=== PATIENT | male | born 1945 ===

== ENCOUNTER 2021-11-19 21:18 | Emergency (ER) | payer OTHER ==
[~2021-11-19] VITALS: Ht 170.2 cm; Wt 52.2 kg
[~2021-11-19 21:18] MED LIST: FLUT50AE2; TIOTCAP
[2021-11-19] MEDS ORDERED: ALBUTEROL SULF 2.5 MG/0.5ML(0.5%) NEB SOLN NEB ONE (21:30)
[2021-11-19 22:18] LABS: Basophils # (auto) 0.1 10 ^3/uL (0-0.2); Basophils % (auto) 0.5 % (0.0-2.0); Eosinophils # (auto) 0.4 10 ^3/uL (0-0.8); Eosinophils % (auto) 2.7 % (0.0-7.0); Hematocrit 39.4 % (41.0-53.0); Hemoglobin 13.5 g/dL (13.5-17.5); Lymphocytes # (auto) 1.3 10 ^3/uL (0.4-5.4); Lymphocytes % (auto) 9.4 % (10.0-50.0); Mean Corpuscular Hemoglobin 30.9 pg (28.0-32.0); Mean Corpuscular Hgb Conc. 34.3 g/dL (32.0-36.0); Monocytes # (auto) 1.1 10 ^3/uL (0-1.3); Monocytes % (auto) 7.8 % (0.0-12.0); Neutrophils # (auto) 10.8 10 ^3/uL (1.6-8.6); Neutrophils % (auto) 79.6 % (37.0-80.0); Red Blood Cells 4.38 10^6/uL (4.5-5.90); Red Cell Distribution Width 14.1 % (11.8-14.3); White Blood Cell 13.5 10^3/uL (4.4-10.8)
[2021-11-19 22:36] LABS: Albumin 3.2 g/dL (3.4-5.0); Calcium 8.7 mg/dL (8.5-10.1); Potassium 3.8 mmol/L (3.5-5.1)
[2021-11-19 22:41] LABS: BUN/Creatinine Ratio 21.7; Bilirubin, Total 1.1 mg/dL (0.2-1.0); Total Protein 6.6 g/dL (6.4-8.2)
[2021-11-19 23:25] VITALS: BP 101/63
== END 2021-11-20 | disposition home or self-care (01) ==
LOC: EDBD 21:18 → ER 21:18
DX: J44.9 Chronic obstructive pulmonary disease, unspecified (principal); I11.0 Hypertensive heart disease with heart failure; I50.9 Heart failure, unspecified; Z20.822 Contact with and (suspected) exposure to COVID-19
CPT/HCPCS: 36415; 71045; 80053; 83880; 84484; 85025; 87426; 93005

== ENCOUNTER 2022-03-24 18:22 | Observation (INO) | payer OTHER ==
[~2022-03-24] VITALS: Ht 170.2 cm; Wt 55.0 kg
[2022-03-24] MEDS ORDERED: dilTIAZem 25 MG/5 ML VIAL IV ONE (19:30)
[2022-03-24 19:35] LABS: Basophils # (auto) 0.1 10 ^3/uL (0-0.2); Eosinophils # (auto) 0.4 10 ^3/uL (0-0.8); Eosinophils % (auto) 3.6 % (0.0-7.0); Hematocrit 44.5 % (41.0-53.0); Hemoglobin 14.4 g/dL (13.5-17.5); Lymphocytes # (auto) 1.2 10 ^3/uL (0.4-5.4); Lymphocytes % (auto) 9.8 % (10.0-50.0); Mean Corpuscular Hgb Conc. 32.5 g/dL (32.0-36.0); Mean Corpuscular Volume 95.4 fL (80.0-100.0); Monocytes # (auto) 0.9 10 ^3/uL (0-1.3); Monocytes % (auto) 7.6 % (0.0-12.0); Neutrophils # (auto) 9.6 10 ^3/uL (1.6-8.6); Nucleated Red Blood Cells % 0.9 %; Red Blood Cells 4.66 10^6/uL (4.5-5.90); Red Cell Distribution Width 17.1 % (11.8-14.3); White Blood Cell 12.2 10^3/uL (4.4-10.8)
[2022-03-24 19:53] LABS: Calcium 8.8 mg/dL (8.5-10.1); Potassium 4.1 mmol/L (3.5-5.1)
[2022-03-24 20:05] LABS: Total Protein 6.1 g/dL (6.4-8.2)
[2022-03-24 20:20] LABS: Urine Bacteria NONE SEEN /hpf (None Seen); Urine Blood Negative /uL (Negative); Urine Mucus FEW (None Seen); Urine Specific Gravity 1.017 (1.001-1.035); Urine WBC <1 /hpf (0 - 3)
[2022-03-24] MEDS ORDERED: MORPHINE SULFATE INJ 2 MG/ml SYRG IV PRN (21:30)
[2022-03-24] MEDS ORDERED: NITROGLYCERIN 0.4 MG SL TAB SL PRN (21:30)
[2022-03-24] MEDS ORDERED: ENOXAPARIN SOD 60 MG/0.6 ML SYRINGE SC SCH (22:00)
[2022-03-24] MEDS: FUROSEMIDE 40 MG/4 ML VIAL IV SCH (22:00)
[2022-03-24 22:01] VITALS: BP 104/80
[2022-03-24 22:11] LABS: INR 1.17 (0.9-1.15)
[2022-03-25] MEDS: ALBUTEROL SULF 2.5 MG/0.5ML(0.5%) NEB SOLN NEB SCH ×6 (00:17→18:57)
[2022-03-25] MEDS: IPRATROPIUM BROM 0.5 MG/2.5ML INH SOL NEB SCH ×5 (00:17→18:57)
[2022-03-25] MEDS: FUROSEMIDE 40 MG/4 ML VIAL IV SCH ×3 (06:00→21:53)
[2022-03-25 09:00] VITALS: BP 112/84
[2022-03-25] MEDS ORDERED: DOXYCYCLINE 100MG/250ML 250 ML IV SCH (09:15)
[2022-03-25 09:40] LABS: Basophils # (auto) 0.1 10 ^3/uL (0-0.2); Basophils % (auto) 0.5 % (0.0-2.0); Eosinophils # (auto) 0.7 10 ^3/uL (0-0.8); Eosinophils % (auto) 5.5 % (0.0-7.0); Hematocrit 46.7 % (41.0-53.0); Hemoglobin 14.9 g/dL (13.5-17.5); Lymphocytes # (auto) 1.4 10 ^3/uL (0.4-5.4); Lymphocytes % (auto) 10.9 % (10.0-50.0); Mean Corpuscular Hemoglobin 30.2 pg (28.0-32.0); Mean Corpuscular Volume 94.4 fL (80.0-100.0); Monocytes % (auto) 8.3 % (0.0-12.0); Neutrophils # (auto) 9.4 10 ^3/uL (1.6-8.6); Neutrophils % (auto) 74.8 % (37.0-80.0); Red Blood Cells 4.94 10^6/uL (4.5-5.90); Red Cell Distribution Width 16.7 % (11.8-14.3); White Blood Cell 12.6 10^3/uL (4.4-10.8)
[2022-03-25] MEDS ORDERED: dilTIAZem 25 MG/5 ML VIAL IV PRN (09:45)
[2022-03-25 10:06] LABS: Calcium 8.5 mg/dL (8.5-10.1); Potassium 4.2 mmol/L (3.5-5.1)
[2022-03-25 10:11] LABS: Bilirubin, Total 1.5 mg/dL (0.2-1.0); Total Protein 6.1 g/dL (6.4-8.2)
[2022-03-25 10:20] LABS: BUN/Creatinine Ratio 27.4
[2022-03-25] MEDS: methylPREDNISolone SOD SUCC 40 MG/ML VL IV SCH ×2 (10:43→21:53)
[2022-03-25] MEDS: DOXYCYCLINE 100MG/250ML 250 ML IV SCH ×2 (10:43→22:50)
[2022-03-25] MEDS ORDERED: dilTIAZem 120MG ER CAP PO ONE (12:00)
[2022-03-25] MEDS: dilTIAZem HCL 60 MG TAB PO SCH ×2 (12:00→18:00)
[2022-03-25] MEDS ORDERED: HYDR-4798 PO (12:25)
[2022-03-25] MEDS ORDERED: FURO20TA3 PO (12:25)
[2022-03-25] MEDS ORDERED: GABA100C9 PO (12:25)
[2022-03-25] MEDS ORDERED: CAR3125T OR (12:25)
[2022-03-25] MEDS ORDERED: POTA10TA51 PO (12:25)
[2022-03-25 13:21] VITALS: BP 108/85
[2022-03-25] MEDS ORDERED: HEPARIN DRIP/D5W 100UNITS/ML 250 ML IV SCH ×4 (15:00→16:15)
[2022-03-25 17:14] VITALS: BP 107/78
[2022-03-25 18:39] LABS: Basophils # (auto) 0 10 ^3/uL (0-0.2); Basophils % (auto) 0.2 % (0.0-2.0); Eosinophils # (auto) 0 10 ^3/uL (0-0.8); Eosinophils % (auto) 0.2 % (0.0-7.0); Hematocrit 45.9 % (41.0-53.0); Lymphocytes # (auto) 0.6 10 ^3/uL (0.4-5.4); Lymphocytes % (auto) 6.4 % (10.0-50.0); Mean Corpuscular Hemoglobin 30.6 pg (28.0-32.0); Mean Corpuscular Hgb Conc. 32.6 g/dL (32.0-36.0); Monocytes # (auto) 0.2 10 ^3/uL (0-1.3); Monocytes % (auto) 1.7 % (0.0-12.0); Neutrophils # (auto) 8.7 10 ^3/uL (1.6-8.6); Neutrophils % (auto) 91.5 % (37.0-80.0); Nucleated Red Blood Cells % 0.2 %; Red Blood Cells 4.89 10^6/uL (4.5-5.90); Red Cell Distribution Width 16.9 % (11.8-14.3); White Blood Cell 9.5 10^3/uL (4.4-10.8)
[2022-03-25 18:52] LABS: INR 1.21 (0.9-1.15); Partial Thromboplastin Time 30.5 sec (23.6-33.0)
[2022-03-25 20:00] VITALS: BP 100/72
[2022-03-25 22:00] VITALS: BP 107/76
[2022-03-26] MEDS ORDERED: HEPARIN SODIUM (PORCINE) 5000 UNITS/ML 1ML VIAL IV ONE
[2022-03-26] MEDS: ALBUTEROL SULF 2.5 MG/0.5ML(0.5%) NEB SOLN NEB SCH
[2022-03-26] MEDS: IPRATROPIUM BROM 0.5 MG/2.5ML INH SOL NEB SCH
[2022-03-26] MEDS ORDERED: HEPARIN DRIP/D5W 100UNITS/ML 250 ML IV SCH (00:15)
[2022-03-26] MEDS: dilTIAZem HCL 60 MG TAB PO SCH (00:34)
== END 2022-03-26 03:45 | disposition left against medical advice (07) ==
LOC: ER 18:22 → EDBD 18:22 → EDUNIT# 18:22 → TELE 21:18 → TELE-WESTW 03-25 07:45
PROVIDERS: ADMIT Internal Medicine; ATTEND Internal Medicine
DX: I48.92 Unspecified atrial flutter (principal); Z20.822 Contact with and (suspected) exposure to COVID-19; I11.0 Hypertensive heart disease with heart failure; I50.33 Acute on chronic diastolic (congestive) heart failure; J44.1 Chronic obstructive pulmonary disease with (acute) exacerbation; I25.10 Atherosclerotic heart disease of native coronary artery without angina pectoris; R09.02 Hypoxemia; Z99.81 Dependence on supplemental oxygen; Z79.899 Other long term (current) drug therapy; Z98.890 Other specified postprocedural states
CPT/HCPCS: 36415; 71045; 80053; 81001; 83880; 84484; 85025; 85610; 85730; 87426; 93005; 93306; 94640; 96365; 96366; 96367; 96368; 96372; 96375; 96376; 99291; G0378; J1644; J1650; J1940; J2270; J2920; J3490; J7030; J7644